=== PATIENT | female | born 1955 | race Caucasian/White ===

== ENCOUNTER 2016-11-09 10:35 | Outpatient (CLI) | payer OTHER ==
--- NOTE | 2016-11-09 12:38 | DIAGNOSTIC IMAGING REPORT ---
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 T1 and T2 axial images. COMPARISON: None. FINDINGS: 38 degrees levoconvex scoliosis. Normal alignment without fracture or suspicious osseous lesion. Severe narrowing of all the lumbar discs with moderate spur formation. Normal conus. T10-11 severe disc space narrowing with left foraminal disc bulge/spur complex with moderate left foraminal stenosis. L1-2: Mild broad-based disc bulge and facet arthropathy. 8 mm right lateral listhesis of L1 relative to L2. No foraminal or spinal stenosis. L2-3: Mild broad-based disc bulge and facet arthropathy. No foraminal or spinal stenosis. L3-4: Mild right lateral disc bulge/spur complex with facet arthropathy with mild right foraminal stenosis. No spinal stenosis. L4-5: Mild left lateral disc bulge/spur complex and facet arthropathy. There is mild left foraminal stenosis. No spinal stenosis. L5-S1: Moderate left foraminal disc bulge/spur complex and facet arthropathy with mild to moderate left foraminal stenosis. No spinal stenosis. IMPRESSION: 1. 38 degrees levoscoliosis with severe multilevel disc and vertebral degenerative changes 2. 8 mm right lateral listhesis of L1 relative to L2 3. Mild right L3-4, mild left L4-5 and moderately severe left L5-S1 foraminal stenosis
== END 2016-11-09 23:00 ==
LOC: MRI SRH 10:35
DX: G83.11 Monoplegia of lower limb affecting right dominant side (principal); M41.9 Scoliosis, unspecified; M43.16 Spondylolisthesis, lumbar region; M48.07 Spinal stenosis, lumbosacral region

== ENCOUNTER 2016-11-24 10:34 | Outpatient (CLI) | payer OTHER ==
--- NOTE | 2016-11-24 12:36 | DIAGNOSTIC IMAGING REPORT ---
PROCEDURE: MR THORACIC SPINE W/O CONT INDICATION: PARAPARESIS TECHNIQUE: Noncontrast T1, T2, and STIR sagittal images. T1 and T2 STIR axial images. COMPARISON: None. FINDINGS: Normal alignment without fracture. Moderate T10-11 disc space narrowing with spur formation and reactive endplate bone marrow edema. Moderate left T10-11 foraminal disc bulge with mild left foraminal stenosis. Small left C5-6 and mild T6-7 disc bulges. No spinal stenosis. Normal thoracic cord. Paraspinal soft tissues are unremarkable. IMPRESSION: 1. Moderate T10-11 disc and vertebral degenerative changes with endplate reactive bone marrow edema. There is also a moderate left foraminal disc bulge with mild left foraminal stenosis 2. Small T5-6 and T6-7 disc bulges
== END 2016-11-24 23:00 ==
LOC: MRI SRH 10:34
DX: G82.20 Paraplegia, unspecified (principal); M51.34 Other intervertebral disc degeneration, thoracic region; M51.24 Other intervertebral disc displacement, thoracic region